=== PATIENT | female | born 1960 | race Caucasian/White ===

== ENCOUNTER 2018-04-07 14:28 | Emergency (ER) | payer OTHER ==
[~2018-04-07] VITALS: Ht 154.9 cm; Wt 61.2 kg
[2018-04-07 15:16] VITALS: BP 182/95
== END 2018-04-07 15:20 | disposition home or self-care (01) ==
LOC: M.ERS 14:28
DX: S00.03XA Contusion of scalp, initial encounter (principal); I10 Essential (primary) hypertension; W19.XXXA Unspecified fall, initial encounter; Y93.89 Activity, other specified; Y92.89 Other specified places as the place of occurrence of the external cause; Y99.8 Other external cause status